=== PATIENT | female | born 1960 | race African-American/Black ===

== ENCOUNTER 2018-05-15 16:21 | Emergency (ER) | payer OTHER ==
[2018-05-15 16:28] VITALS: Ht 157.5 cm
[2018-05-15 18:25] VITALS: BP 153/101
== END 2018-05-15 18:25 | disposition home or self-care (01) ==
LOC: ED 16:21
DX: H10.9 Unspecified conjunctivitis (principal); I10 Essential (primary) hypertension

== ENCOUNTER 2020-08-20 10:53 | Inpatient (IN) | payer OTHER, SELFPAY ==
[~2020-08-20] VITALS: Ht 157.5 cm; Wt 71.2 kg
[2020-08-20 12:41] LABS: BASOPHIL % 0.1 % (0.2-1.3)
[2020-08-20 12:45] LABS: PLATELET COUNT 212 x10^3mcL (179-408); RED CELL DISTRIBUTION WIDTH 13.9 % (12.3-17.7)
[2020-08-20 13:07] LABS: FREE T4 1.38 ng/dL (0.76-1.46); FREE THYROXINE INDEX 2.9 ug/dL (1.4-4.5); T4(THYROXINE) 8.9 ug/dL (4.7-13.3)
[2020-08-20 13:08] LABS: ALKALINE PHOSPHATASE 78 U/L (46-116); AST/SGOT 300 U/L (15-37); CALCIUM 8.4 mg/dL (8.5-10.1); CARBON DIOXIDE 22.2 mmol/L (21-32); CHLORIDE SERUM 89 mmol/L (98-107); CREATININE SERUM 1.8 mg/dL (0.6-1.0); GFR1 31 mL/min; GLUCOSE SERUM 148 mg/dL (74-106); POTASSIUM SERUM 3.2 mmol/L (3.5-5.1); SODIUM SERUM 129 mmol/L (136-145); TOTAL PROTEIN, SERUM 7.2 g/dL (6.4-8.2)
[2020-08-20 13:10] LABS: CK-MB 9.4 ng/mL (0-3.6)
[2020-08-20 13:15] LABS: UA SPECIFIC GRAVITY >=1.030 (1.005-1.035); microscopic required? YES; urine erythrocyte NEGATIVE (NEGATIVE)
[2020-08-20 13:20] LABS: T3 TOTAL 0.37 ng/mL
[2020-08-20 13:28] LABS: ALT/SGPT 178 U/L (14-59)
[2020-08-20 13:53] LABS: C REACTIVE PROTEIN 30.4 mg/dL (<=0.9)
[2020-08-20 14:26] LABS: ERYTHROCYTE SED RATE 85 mm/hr (0-30)
[2020-08-20 17:14] LABS: MAGNESIUM 1.3 mg/dL (1.8-2.4)
[2020-08-20 17:17] LABS: CHOLESTEROL/HDL RATIO 2.3
[2020-08-20 21:16] LABS: AMPHETAMINE QUAL UR NONE DETECTED (See below)
[2020-08-20 23:27] VITALS: BP 114/69
[2020-08-21 04:16] LABS: RED CELL DISTRIBUTION WIDTH 14.2 % (12.3-17.7)
[2020-08-21 04:17] LABS: BASOPHIL % 0.2 % (0.2-1.3); PLATELET COUNT 199 x10^3mcL (179-408)
[2020-08-21 04:32] LABS: CALCIUM 7.7 mg/dL (8.5-10.1); CARBON DIOXIDE 29.1 mmol/L (21-32); CHLORIDE SERUM 99 mmol/L (98-107); GFR1 > 60 mL/min; GLUCOSE SERUM 160 mg/dL (74-106); MAGNESIUM 2.7 mg/dL (1.8-2.4); PHOSPHOROUS 3.7 mg/dL (2.5-4.9); SODIUM SERUM 137 mmol/L (136-145)
[2020-08-21 11:03] LABS: BILIRUBIN DIRECT 0.39 mg/dL (0.0-0.2); BILIRUBIN TOTAL 0.7 mg/dL (0.20-1.00); TOTAL PROTEIN, SERUM 6.5 g/dL (6.4-8.2)
[2020-08-21 11:05] LABS: ALBUMIN 2.9 g/dL (3.4-5.0)
[2020-08-22 03:19] LABS: RED CELL DISTRIBUTION WIDTH 14.5 % (12.3-17.7)
[2020-08-22 03:20] LABS: PLATELET COUNT 185 x10^3mcL (179-408)
[2020-08-22 03:57] LABS: MONOCYTE 8 % (0-7); SEGMENTED NEUTROPHILS 86 % (37-75); rbc morphology (normal/abnorm) NORMAL (NORMAL)
[2020-08-22 04:19] LABS: CALCIUM 8.2 mg/dL (8.5-10.1); CARBON DIOXIDE 33.8 mmol/L (21-32); CHLORIDE SERUM 103 mmol/L (98-107); CREATININE SERUM 0.9 mg/dL (0.6-1.0); GFR1 > 60 mL/min; GLUCOSE SERUM 166 mg/dL (74-106); MAGNESIUM 2.7 mg/dL (1.8-2.4); POTASSIUM SERUM 4.5 mmol/L (3.5-5.1); SODIUM SERUM 139 mmol/L (136-145)
[2020-08-22 20:45] VITALS: BP 97/60
[2020-08-22 22:25] VITALS: BP 108/68
[2020-08-23] VITALS (7 sets, daily range): BP systolic 102–163; BP diastolic 57–75
[2020-08-23 08:51] LABS: PLATELET COUNT 195 x10^3mcL (179-408); RED CELL DISTRIBUTION WIDTH 14.4 % (12.3-17.7)
[2020-08-23 09:28] LABS: CALCIUM 7.9 mg/dL (8.5-10.1); CARBON DIOXIDE 33.2 mmol/L (21-32); CREATININE SERUM 1.3 mg/dL (0.6-1.0); MAGNESIUM 2.7 mg/dL (1.8-2.4); PHOSPHOROUS 1.1 mg/dL (2.5-4.9); POTASSIUM SERUM 3.8 mmol/L (3.5-5.1)
[2020-08-23 10:26] LABS: BILIRUBIN DIRECT 0.31 mg/dL (0.0-0.2); BILIRUBIN TOTAL 0.5 mg/dL (0.20-1.00)
[2020-08-23 10:42] LABS: ALBUMIN 2.3 g/dL (3.4-5.0); TOTAL PROTEIN, SERUM 5.4 g/dL (6.4-8.2)
[2020-08-23 16:22] LABS: BAND NEUTROPHIL 6 % (0-10); BASOPHIL 0 % (0-2); MONOCYTE 3 % (0-7); SEGMENTED NEUTROPHILS 78 % (37-75)
[2020-08-23 16:23] LABS: rbc morphology (normal/abnorm) NORMAL (NORMAL)
[2020-08-23 16:24] LABS: PLATELET MORPHOLOGY PLATELETS NORMAL
[2020-08-24 02:32] VITALS: BP 130/60
[2020-08-24 05:17] LABS: RED CELL DISTRIBUTION WIDTH 14.5 % (12.3-17.7)
[2020-08-24 05:21] LABS: BASOPHIL % 0.2 % (0.2-1.3); PLATELET COUNT 222 x10^3mcL (179-408)
[2020-08-24 05:43] LABS: BILIRUBIN TOTAL 0.6 mg/dL (0.20-1.00); CALCIUM 8.4 mg/dL (8.5-10.1); CARBON DIOXIDE 35.2 mmol/L (21-32); CREATININE SERUM 1.1 mg/dL (0.6-1.0); MAGNESIUM 2.7 mg/dL (1.8-2.4); PHOSPHOROUS 1.8 mg/dL (2.5-4.9); POTASSIUM SERUM 3.9 mmol/L (3.5-5.1); TOTAL PROTEIN, SERUM 6.2 g/dL (6.4-8.2)
[2020-08-24 05:47] LABS: ALBUMIN 2.4 g/dL (3.4-5.0)
[2020-08-24 08:34] VITALS: BP 120/57
[2020-08-24 11:15] VITALS: BP 131/62
[2020-08-24 13:46] VITALS: BP 133/67
[2020-08-24 20:38] VITALS: BP 145/78
[2020-08-25 01:50] VITALS: BP 132/69
[2020-08-25 06:00] LABS: ALKALINE PHOSPHATASE 107 U/L (46-116); ALT/SGPT 111 U/L (14-59); AST/SGOT 41 U/L (15-37); BILIRUBIN TOTAL 0.45 mg/dL (0.20-1.00); CALCIUM 8.2 mg/dL (8.5-10.1); CARBON DIOXIDE 36.1 mmol/L (21-32); CHLORIDE SERUM 111 mmol/L (98-107); CREATININE SERUM 0.7 mg/dL (0.6-1.0); GFR1 > 60 mL/min; GLUCOSE SERUM 93 mg/dL (74-106); MAGNESIUM 2.5 mg/dL (1.8-2.4); PHOSPHOROUS 2.4 mg/dL (2.5-4.9); POTASSIUM SERUM 3.2 mmol/L (3.5-5.1); SODIUM SERUM 152 mmol/L (136-145)
[2020-08-25 06:03] LABS: ALBUMIN 2.2 g/dL (3.4-5.0); TOTAL PROTEIN, SERUM 5.9 g/dL (6.4-8.2)
[2020-08-25 07:20] VITALS: BP 136/59
[2020-08-25 08:48] LABS: PLATELET COUNT 235 x10^3mcL (179-408)
[2020-08-25 09:00] LABS: RED CELL DISTRIBUTION WIDTH 14.6 % (12.3-17.7)
[2020-08-25] MEDS ORDERED: BENZONATATE200 MG PO (10:09)
[2020-08-25] MEDS ORDERED: PROAIR HFA8.5 GM INH ×2 (10:09→10:16)
[2020-08-25] MEDS ORDERED: ZITHROMAX Z-PA250 MG (10:11)
[2020-08-25] MEDS ORDERED: PRED MILD5 ML OS (10:12)
[2020-08-25] MEDS ORDERED: NAPROXEN375 MG PO (10:12)
[2020-08-25] MEDS ORDERED: DORZOLAMIDE HYD10 M3 OU (10:13)
[2020-08-25] MEDS ORDERED: SINGULAIR10 MG PO (10:13)
[2020-08-25] MEDS ORDERED: BRIMONIDINE TART5 M1 OU (10:14)
[2020-08-25] MEDS ORDERED: VYZULTA5 ML OU (10:14)
[2020-08-25] MEDS ORDERED: BREO ELLIPTA1 PO1 INH (10:15)
[2020-08-25] MEDS ORDERED: RHOPRESSA2.5 ML OS (10:16)
[2020-08-25] MEDS ORDERED: REFRESH TEARS15 ML OU (10:16)
[2020-08-25] MEDS ORDERED: ATRUD INH (10:18)
[2020-08-25] MEDS ORDERED: SYMBICORT1 AE3 INH (10:19)
[2020-08-25 13:16] LABS: BAND NEUTROPHIL 2 % (0-10); BASOPHIL 0 % (0-2); MONOCYTE 3 % (0-7); PLATELET MORPHOLOGY PLATELETS NORMAL; SEGMENTED NEUTROPHILS 82 % (37-75); rbc morphology (normal/abnorm) NORMAL (NORMAL)
[2020-08-25 14:06] LABS: CALCIUM 8.2 mg/dL (8.5-10.1); CARBON DIOXIDE 33.7 mmol/L (21-32); CHLORIDE SERUM 109 mmol/L (98-107); CREATININE SERUM 0.6 mg/dL (0.6-1.0); GFR1 > 60 mL/min; GLUCOSE SERUM 170 mg/dL (74-106); POTASSIUM SERUM 3.7 mmol/L (3.5-5.1); SODIUM SERUM 148 mmol/L (136-145)
[2020-08-25 19:11] LABS: CALCIUM 7.7 mg/dL (8.5-10.1); CARBON DIOXIDE 34.6 mmol/L (21-32); CHLORIDE SERUM 109 mmol/L (98-107); CREATININE SERUM 0.7 mg/dL (0.6-1.0); GFR1 > 60 mL/min; GLUCOSE SERUM 160 mg/dL (74-106); POTASSIUM SERUM 3.4 mmol/L (3.5-5.1); SODIUM SERUM 149 mmol/L (136-145)
[2020-08-25 20:15] VITALS: BP 133/62
[2020-08-26 02:00] VITALS: BP 135/78
[2020-08-26 06:35] LABS: BASOPHIL % 0.2 % (0.2-1.3); PLATELET COUNT 252 x10^3mcL (179-408); RED CELL DISTRIBUTION WIDTH 14.5 % (12.3-17.7)
[2020-08-26 07:09] LABS: CALCIUM 8.5 mg/dL (8.5-10.1); CHLORIDE SERUM 110 mmol/L (98-107); CREATININE SERUM 0.8 mg/dL (0.6-1.0); GFR1 > 60 mL/min; GLUCOSE SERUM 107 mg/dL (74-106); MAGNESIUM 2.5 mg/dL (1.8-2.4); POTASSIUM SERUM 3.1 mmol/L (3.5-5.1); SODIUM SERUM 152 mmol/L (136-145)
[2020-08-26 07:17] LABS: ALBUMIN 1.9 g/dL (3.4-5.0)
[2020-08-26 07:29] LABS: ALKALINE PHOSPHATASE 85 U/L (46-116); ALT/SGPT 112 U/L (14-59); AST/SGOT 70 U/L (15-37); BILIRUBIN TOTAL 0.48 mg/dL (0.20-1.00); PHOSPHOROUS 3.4 mg/dL (2.5-4.9)
[2020-08-26 07:30] LABS: TOTAL PROTEIN, SERUM 5.9 g/dL (6.4-8.2)
[2020-08-26 13:10] LABS: CARBON DIOXIDE 37.5 mmol/L (21-32); CHLORIDE SERUM 110 mmol/L (98-107); CREATININE SERUM 0.8 mg/dL (0.6-1.0); GFR1 > 60 mL/min; GLUCOSE SERUM 175 mg/dL (74-106); POTASSIUM SERUM 3.4 mmol/L (3.5-5.1); SODIUM SERUM 152 mmol/L (136-145)
[2020-08-26 22:41] LABS: CARBON DIOXIDE 32.7 mmol/L (21-32); CHLORIDE SERUM 116 mmol/L (98-107); CREATININE SERUM 0.7 mg/dL (0.6-1.0); GFR1 > 60 mL/min; GLUCOSE SERUM 137 mg/dL (74-106); POTASSIUM SERUM 4.3 mmol/L (3.5-5.1); SODIUM SERUM 155 mmol/L (136-145)
[2020-08-26 22:55] LABS: rbc morphology (normal/abnorm) ABNORMAL (NORMAL); tear drop cell (dacryocyte) 1+
[2020-08-27 00:46] LABS: CALCIUM 7.5 mg/dL (8.5-10.1); CARBON DIOXIDE 33.9 mmol/L (21-32); CHLORIDE SERUM 119 mmol/L (98-107); CREATININE SERUM 0.7 mg/dL (0.6-1.0); GFR1 > 60 mL/min; GLUCOSE SERUM 129 mg/dL (74-106); POTASSIUM SERUM 4.4 mmol/L (3.5-5.1); SODIUM SERUM 158 mmol/L (136-145)
[2020-08-27 07:03] LABS: CALCIUM 7.8 mg/dL (8.5-10.1); CARBON DIOXIDE 33.1 mmol/L (21-32); CHLORIDE SERUM 119 mmol/L (98-107); GFR1 > 60 mL/min; GLUCOSE SERUM 196 mg/dL (74-106); POTASSIUM SERUM 3.8 mmol/L (3.5-5.1); SODIUM SERUM 157 mmol/L (136-145)
[2020-08-27 08:38] VITALS: BP 96/52
[2020-08-27 10:00] VITALS: BP 96/46
[2020-08-27 10:13] VITALS: BP 70/35
[2020-08-27 12:00] VITALS: BP 96/46
[2020-08-27 13:14] LABS: CALCIUM 7.8 mg/dL (8.5-10.1); CARBON DIOXIDE 27.2 mmol/L (21-32); CREATININE SERUM 1.7 mg/dL (0.6-1.0); POTASSIUM SERUM 4.6 mmol/L (3.5-5.1)
[2020-08-27 16:00] VITALS: BP 115/60
[2020-08-27 19:08] LABS: CALCIUM 6.7 mg/dL (8.5-10.1); CARBON DIOXIDE 30.4 mmol/L (21-32); CREATININE SERUM 1.7 mg/dL (0.6-1.0); POTASSIUM SERUM 4.9 mmol/L (3.5-5.1)
[2020-08-27 20:00] VITALS: BP 132/93
[2020-08-28 00:05] VITALS: BP 100/77
[2020-08-28 06:56] LABS: PLATELET COUNT 118 x10^3mcL (179-408); RED CELL DISTRIBUTION WIDTH 14.6 % (12.3-17.7)
[2020-08-28 06:58] LABS: CALCIUM 6.4 mg/dL (8.5-10.1); CARBON DIOXIDE 28.3 mmol/L (21-32); CREATININE SERUM 1.5 mg/dL (0.6-1.0); MAGNESIUM 1.8 mg/dL (1.8-2.4); PHOSPHOROUS 3.9 mg/dL (2.5-4.9)
[2020-08-28 08:00] VITALS: BP 97/68
[2020-08-28 09:42] LABS: BILIRUBIN DIRECT 0.14 mg/dL (0.0-0.2); BILIRUBIN TOTAL 0.3 mg/dL (0.20-1.00)
[2020-08-28 09:43] LABS: ALBUMIN 1.4 g/dL (3.4-5.0); TOTAL PROTEIN, SERUM 3.4 g/dL (6.4-8.2)
[2020-08-28 12:00] VITALS: BP 132/111
[2020-08-28 13:57] LABS: BAND NEUTROPHIL 0 % (0-10); BASOPHIL 0 % (0-2); MONOCYTE 5 % (0-7); PLATELET MORPHOLOGY PLATELETS DECREASED; SEGMENTED NEUTROPHILS 85 % (37-75); rbc morphology (normal/abnorm) ABNORMAL (NORMAL)
[2020-08-28 16:00] VITALS: BP 94/51
[2020-08-28 19:47] LABS: PLATELET COUNT 131 x10^3mcL (179-408)
[2020-08-28 20:03] LABS: RED CELL DISTRIBUTION WIDTH 16.2 % (12.3-17.7)
[2020-08-28 20:30] VITALS: BP 103/68
[2020-08-28 20:49] LABS: BAND NEUTROPHIL 3 % (0-10); METAMYELOCTE 6 % (0-2); MONOCYTE 8 % (0-7); MYELOCYTE 1 % (0-2); SEGMENTED NEUTROPHILS 73 % (37-75)
[2020-08-28 20:51] LABS: rbc morphology (normal/abnorm) ABNORMAL (NORMAL)
[2020-08-28 20:54] LABS: PLATELET MORPHOLOGY PLATELET S DECREASED
[2020-08-29 08:00] VITALS: BP 97/63
[2020-08-29 10:54] LABS: CARBON DIOXIDE 31.9 mmol/L (21-32); CREATININE SERUM 1.8 mg/dL (0.6-1.0); MAGNESIUM 1.9 mg/dL (1.8-2.4); PHOSPHOROUS 5.1 mg/dL (2.5-4.9); POTASSIUM SERUM 4.4 mmol/L (3.5-5.1)
[2020-08-29 12:00] VITALS: BP 107/47
[2020-08-29 13:08] LABS: PLATELET COUNT 138 x10^3mcL (179-408)
[2020-08-29 13:24] LABS: RED CELL DISTRIBUTION WIDTH 14.7 % (12.3-17.7)
[2020-08-29 14:02] LABS: BAND NEUTROPHIL 2 % (0-10); MONOCYTE 4 % (0-7); SEGMENTED NEUTROPHILS 82 % (37-75); rbc morphology (normal/abnorm) ABNORMAL (NORMAL)
[2020-08-29 16:00] VITALS: BP 101/47
[2020-08-29 20:30] VITALS: BP 107/62
[2020-08-30 06:18] LABS: BASOPHIL % 0.4 % (0.2-1.3)
[2020-08-30 06:21] LABS: PLATELET COUNT 139 x10^3mcL (179-408)
[2020-08-30 06:38] LABS: CREATININE SERUM 1.3 mg/dL (0.6-1.0); POTASSIUM SERUM 3.8 mmol/L (3.5-5.1)
[2020-08-30 06:44] LABS: RED CELL DISTRIBUTION WIDTH 14.7 % (12.3-17.7)
[2020-08-30 08:00] VITALS: BP 132/92
[2020-08-30 12:00] VITALS: BP 132/72
[2020-08-30 12:30] LABS: rbc morphology (normal/abnorm) NORMAL (NORMAL)
[2020-08-30 15:04] LABS: PLATELET COUNT 145 x10^3mcL (179-408)
[2020-08-30 15:11] LABS: RED CELL DISTRIBUTION WIDTH 14.7 % (12.3-17.7)
[2020-08-30 16:00] VITALS: BP 117/65
[2020-08-30 16:01] LABS: ATYPICAL LYMPH 1 %; BAND NEUTROPHIL 2 % (0-10); METAMYELOCTE 9 % (0-2); MONOCYTE 4 % (0-7); MYELOCYTE 3 % (0-2); SEGMENTED NEUTROPHILS 77 % (37-75); rbc morphology (normal/abnorm) ABNORMAL (NORMAL)
[2020-08-30 16:02] LABS: PLATELET MORPHOLOGY PLATELETS NORMAL
[2020-08-30 20:30] VITALS: BP 92/53
[2020-08-31] VITALS (7 sets, daily range): BP systolic 132–174; BP diastolic 60–96
[2020-08-31 09:37] LABS: BASOPHIL % 0.2 % (0.2-1.3); PLATELET COUNT 139 x10^3mcL (179-408)
[2020-08-31 09:55] LABS: RED CELL DISTRIBUTION WIDTH 14.6 % (12.3-17.7)
[2020-08-31 09:56] LABS: BILIRUBIN TOTAL 0.6 mg/dL (0.20-1.00); CARBON DIOXIDE 33.2 mmol/L (21-32); CREATININE SERUM 1.2 mg/dL (0.6-1.0); PHOSPHOROUS 2.4 mg/dL (2.5-4.9)
[2020-08-31 10:11] LABS: ALBUMIN 3.3 g/dL (3.4-5.0); TOTAL PROTEIN, SERUM 5.7 g/dL (6.4-8.2)
[2020-08-31 10:14] LABS: POTASSIUM SERUM 2.9 mmol/L (3.5-5.1)
[2020-08-31 20:11] LABS: CALCIUM 9.1 mg/dL (8.5-10.1); CARBON DIOXIDE 32.3 mmol/L (21-32); CREATININE SERUM 1.3 mg/dL (0.6-1.0); POTASSIUM SERUM 3.5 mmol/L (3.5-5.1)
[2020-09-01 07:11] LABS: ALBUMIN 3.3 g/dL (3.4-5.0); ALKALINE PHOSPHATASE 40 U/L (46-116); ALT/SGPT 341 U/L (14-59); AST/SGOT 105 U/L (15-37); CALCIUM 9.1 mg/dL (8.5-10.1); CHLORIDE SERUM 116 mmol/L (98-107); GFR1 > 60 mL/min; GLUCOSE SERUM 116 mg/dL (74-106); MAGNESIUM 2.2 mg/dL (1.8-2.4); PHOSPHOROUS 2.3 mg/dL (2.5-4.9); POTASSIUM SERUM 3.3 mmol/L (3.5-5.1); SODIUM SERUM 156 mmol/L (136-145)
[2020-09-01 08:00] VITALS: BP 184/79
[2020-09-01 09:20] LABS: BASOPHIL % 0.2 % (0.2-1.3); PLATELET COUNT 158 x10^3mcL (179-408)
[2020-09-01 10:00] VITALS: BP 166/79
[2020-09-01 12:00] VITALS: BP 138/78
[2020-09-01 14:00] VITALS: BP 154/85
[2020-09-01 16:00] VITALS: BP 154/87
[2020-09-01 20:00] VITALS: BP 153/75
[2020-09-02] VITALS (18 sets, daily range): BP systolic 99–186; BP diastolic 35–107
[2020-09-02 07:11] LABS: BASOPHIL % 0.3 % (0.2-1.3); PLATELET COUNT 163 x10^3mcL (179-408)
[2020-09-02 07:13] LABS: ALKALINE PHOSPHATASE 43 U/L (46-116); ALT/SGPT 267 U/L (14-59); AST/SGOT 52 U/L (15-37); BILIRUBIN TOTAL 0.31 mg/dL (0.20-1.00); CALCIUM 9.2 mg/dL (8.5-10.1); CARBON DIOXIDE 35.7 mmol/L (21-32); CHLORIDE SERUM 114 mmol/L (98-107); CREATININE SERUM 0.9 mg/dL (0.6-1.0); GFR1 > 60 mL/min; GLUCOSE SERUM 274 mg/dL (74-106); SODIUM SERUM 152 mmol/L (136-145)
[2020-09-02 07:20] LABS: ALBUMIN 2.9 g/dL (3.4-5.0); TOTAL PROTEIN, SERUM 5.8 g/dL (6.4-8.2)
[2020-09-02 07:36] LABS: RED CELL DISTRIBUTION WIDTH 15.2 % (12.3-17.7)
[2020-09-03] VITALS (13 sets, daily range): BP systolic 93–144; BP diastolic 61–78
[2020-09-03 06:13] LABS: BASOPHIL % 0.3 % (0.2-1.3); PLATELET COUNT 143 x10^3mcL (179-408)
[2020-09-03 06:25] LABS: CALCIUM 9.5 mg/dL (8.5-10.1); CARBON DIOXIDE 32.8 mmol/L (21-32); CHLORIDE SERUM 110 mmol/L (98-107); GFR1 > 60 mL/min; GLUCOSE SERUM 295 mg/dL (74-106); MAGNESIUM 1.9 mg/dL (1.8-2.4); PHOSPHOROUS 2.2 mg/dL (2.5-4.9); SODIUM SERUM 148 mmol/L (136-145)
[2020-09-03 07:01] LABS: POTASSIUM SERUM 2.5 mmol/L (3.5-5.1)
[2020-09-03 16:40] LABS: CALCIUM 9.3 mg/dL (8.5-10.1); CARBON DIOXIDE 31.3 mmol/L (21-32); CHLORIDE SERUM 108 mmol/L (98-107); CREATININE SERUM 0.9 mg/dL (0.6-1.0); GFR1 > 60 mL/min; GLUCOSE SERUM 336 mg/dL (74-106); POTASSIUM SERUM 3.4 mmol/L (3.5-5.1); SODIUM SERUM 145 mmol/L (136-145)
[2020-09-04] VITALS (20 sets, daily range): BP systolic 57–147; BP diastolic 36–88
[2020-09-04 06:54] LABS: BASOPHIL % 0.8 % (0.2-1.3); PLATELET COUNT 159 x10^3mcL (179-408)
[2020-09-04 07:06] LABS: ALKALINE PHOSPHATASE 49 U/L (46-116); ALT/SGPT 127 U/L (14-59); AST/SGOT 20 U/L (15-37); BILIRUBIN TOTAL 0.23 mg/dL (0.20-1.00); CARBON DIOXIDE 32.5 mmol/L (21-32); CHLORIDE SERUM 109 mmol/L (98-107); GFR1 > 60 mL/min; GLUCOSE SERUM 143 mg/dL (74-106); POTASSIUM SERUM 3.6 mmol/L (3.5-5.1); SODIUM SERUM 146 mmol/L (136-145)
[2020-09-04 07:07] LABS: ALBUMIN 2.2 g/dL (3.4-5.0); TOTAL PROTEIN, SERUM 5.2 g/dL (6.4-8.2)
[2020-09-04 10:16] LABS: rbc morphology (normal/abnorm) ABNORMAL (NORMAL)
[2020-09-05] VITALS (10 sets, daily range): BP systolic 88–129; BP diastolic 51–66
[2020-09-05 06:15] LABS: PLATELET COUNT 161 x10^3mcL (179-408)
[2020-09-05 06:24] LABS: ALKALINE PHOSPHATASE 49 U/L (46-116); ALT/SGPT 99 U/L (14-59); AST/SGOT 39 U/L (15-37); BILIRUBIN TOTAL 0.25 mg/dL (0.20-1.00); CALCIUM 8.3 mg/dL (8.5-10.1); CARBON DIOXIDE 31.5 mmol/L (21-32); CHLORIDE SERUM 112 mmol/L (98-107); GFR1 > 60 mL/min; GLUCOSE SERUM 145 mg/dL (74-106); POTASSIUM SERUM 4.2 mmol/L (3.5-5.1); SODIUM SERUM 145 mmol/L (136-145)
[2020-09-05 06:58] LABS: RED CELL DISTRIBUTION WIDTH 15.7 % (12.3-17.7)
[2020-09-05 06:59] LABS: ALBUMIN 1.9 g/dL (3.4-5.0); TOTAL PROTEIN, SERUM 4.9 g/dL (6.4-8.2)
[2020-09-05 07:22] LABS: SEGMENTED NEUTROPHILS 84 % (37-75)
[2020-09-05 07:23] LABS: BASOPHIL 1 % (0-2); MONOCYTE 5 % (0-7)
[2020-09-05 07:24] LABS: rbc morphology (normal/abnorm) NORMAL (NORMAL)
[2020-09-06] VITALS (9 sets, daily range): BP systolic 91–121; BP diastolic 45–58
[2020-09-06 06:29] LABS: BASOPHIL % 1.2 % (0.2-1.3); PLATELET COUNT 150 x10^3mcL (179-408)
[2020-09-06 06:43] LABS: CALCIUM 8.3 mg/dL (8.5-10.1); CARBON DIOXIDE 32.8 mmol/L (21-32); CHLORIDE SERUM 110 mmol/L (98-107); GFR1 > 60 mL/min; GLUCOSE SERUM 135 mg/dL (74-106); MAGNESIUM 1.7 mg/dL (1.8-2.4); PHOSPHOROUS 3.3 mg/dL (2.5-4.9); SODIUM SERUM 144 mmol/L (136-145)
[2020-09-06 08:39] LABS: RED CELL DISTRIBUTION WIDTH 16.3 % (12.3-17.7)
[2020-09-07] VITALS (12 sets, daily range): BP systolic 100–158; BP diastolic 46–92
[2020-09-07 06:45] LABS: BASOPHIL % 0.3 % (0.2-1.3); PLATELET COUNT 142 x10^3mcL (179-408)
[2020-09-07 07:04] LABS: CALCIUM 8.4 mg/dL (8.5-10.1); CARBON DIOXIDE 31.8 mmol/L (21-32); CHLORIDE SERUM 110 mmol/L (98-107); CREATININE SERUM 0.9 mg/dL (0.6-1.0); GFR1 > 60 mL/min; GLUCOSE SERUM 137 mg/dL (74-106); POTASSIUM SERUM 4.8 mmol/L (3.5-5.1); SODIUM SERUM 144 mmol/L (136-145)
[2020-09-07 07:25] LABS: RED CELL DISTRIBUTION WIDTH 17.4 % (12.3-17.7)
[2020-09-08] VITALS (20 sets, daily range): BP systolic 98–133; BP diastolic 51–69
[2020-09-08 06:25] LABS: BASOPHIL % 0.4 % (0.2-1.3); PLATELET COUNT 180 x10^3mcL (179-408)
[2020-09-08 07:02] LABS: ALKALINE PHOSPHATASE 54 U/L (46-116); ALT/SGPT 62 U/L (14-59); AST/SGOT 28 U/L (15-37); BILIRUBIN DIRECT 0.12 mg/dL (0.0-0.2); BILIRUBIN TOTAL 0.3 mg/dL (0.20-1.00); CALCIUM 8.1 mg/dL (8.5-10.1); CARBON DIOXIDE 36.4 mmol/L (21-32); CHLORIDE SERUM 107 mmol/L (98-107); CREATININE SERUM 0.9 mg/dL (0.6-1.0); GFR1 > 60 mL/min; GLUCOSE SERUM 115 mg/dL (74-106); MAGNESIUM 1.7 mg/dL (1.8-2.4); PHOSPHOROUS 3.5 mg/dL (2.5-4.9); POTASSIUM SERUM 3.3 mmol/L (3.5-5.1); SODIUM SERUM 144 mmol/L (136-145)
[2020-09-08 07:05] LABS: ALBUMIN 2.2 g/dL (3.4-5.0); TOTAL PROTEIN, SERUM 5.6 g/dL (6.4-8.2)
[2020-09-08 07:24] LABS: RED CELL DISTRIBUTION WIDTH 17.8 % (12.3-17.7)
[2020-09-09] VITALS (20 sets, daily range): BP systolic 102–177; BP diastolic 51–94
[2020-09-09 08:25] LABS: BASOPHIL % 0.7 % (0.2-1.3); PLATELET COUNT 236 x10^3mcL (179-408)
[2020-09-09 08:46] LABS: RED CELL DISTRIBUTION WIDTH 19.2 % (12.3-17.7)
[2020-09-09 08:51] LABS: ALKALINE PHOSPHATASE 61 U/L (46-116); ALT/SGPT 50 U/L (14-59); AST/SGOT 24 U/L (15-37); BILIRUBIN TOTAL 0.3 mg/dL (0.20-1.00); CALCIUM 8.1 mg/dL (8.5-10.1); CARBON DIOXIDE 35.2 mmol/L (21-32); CHLORIDE SERUM 104 mmol/L (98-107); CREATININE SERUM 0.9 mg/dL (0.6-1.0); GFR1 > 60 mL/min; GLUCOSE SERUM 122 mg/dL (74-106); SODIUM SERUM 146 mmol/L (136-145)
[2020-09-09 08:56] LABS: ALBUMIN 2.1 g/dL (3.4-5.0); POTASSIUM SERUM 2.8 mmol/L (3.5-5.1); TOTAL PROTEIN, SERUM 5.9 g/dL (6.4-8.2)
[2020-09-09 12:39] LABS: rbc morphology (normal/abnorm) ABNORMAL (NORMAL)
[2020-09-10] VITALS (9 sets, daily range): BP systolic 107–160; BP diastolic 56–82
[2020-09-10 00:42] LABS: BASOPHIL % 0.5 % (0.2-1.3); PLATELET COUNT 219 x10^3mcL (179-408)
[2020-09-10 00:44] LABS: RED CELL DISTRIBUTION WIDTH 17.5 % (12.3-17.7)
[2020-09-10 07:08] LABS: ALKALINE PHOSPHATASE 52 U/L (46-116); ALT/SGPT 49 U/L (14-59); AST/SGOT 38 U/L (15-37); BASOPHIL % 0.4 % (0.2-1.3); BILIRUBIN DIRECT 0.17 mg/dL (0.0-0.2); BILIRUBIN TOTAL 0.32 mg/dL (0.20-1.00); CALCIUM 8.5 mg/dL (8.5-10.1); CARBON DIOXIDE 37.7 mmol/L (21-32); CHLORIDE SERUM 103 mmol/L (98-107); CREATININE SERUM 0.9 mg/dL (0.6-1.0); GFR1 > 60 mL/min; GLUCOSE SERUM 125 mg/dL (74-106); PLATELET COUNT 215 x10^3mcL (179-408); SODIUM SERUM 144 mmol/L (136-145)
[2020-09-10 07:22] LABS: ALBUMIN 2.1 g/dL (3.4-5.0); POTASSIUM SERUM 2.8 mmol/L (3.5-5.1); TOTAL PROTEIN, SERUM 5.9 g/dL (6.4-8.2)
[2020-09-10 07:28] LABS: RED CELL DISTRIBUTION WIDTH 18.6 % (12.3-17.7)
[2020-09-10 12:29] LABS: rbc morphology (normal/abnorm) ABNORMAL (NORMAL)
[2020-09-11] VITALS: BP 149/81
[2020-09-11 04:00] VITALS: BP 118/58
[2020-09-11 05:56] LABS: BASOPHIL % 0.1 % (0.2-1.3); PLATELET COUNT 276 x10^3mcL (179-408)
[2020-09-11 06:11] LABS: ALKALINE PHOSPHATASE 58 U/L (46-116); ALT/SGPT 75 U/L (14-59); AST/SGOT 62 U/L (15-37); BILIRUBIN DIRECT 0.17 mg/dL (0.0-0.2); BILIRUBIN TOTAL 0.3 mg/dL (0.20-1.00); CALCIUM 8.6 mg/dL (8.5-10.1); CHLORIDE SERUM 103 mmol/L (98-107); CREATININE SERUM 0.8 mg/dL (0.6-1.0); GFR1 > 60 mL/min; GLUCOSE SERUM 111 mg/dL (74-106); POTASSIUM SERUM 3.5 mmol/L (3.5-5.1); SODIUM SERUM 143 mmol/L (136-145); TOTAL PROTEIN, SERUM 6.7 g/dL (6.4-8.2)
[2020-09-11 06:19] LABS: ALBUMIN 2.5 g/dL (3.4-5.0)
[2020-09-11 08:00] VITALS: BP 128/84
[2020-09-12 04:00] VITALS: BP 149/62
[2020-09-12 05:56] LABS: BASOPHIL % 0.4 % (0.2-1.3); PLATELET COUNT 312 x10^3mcL (179-408)
[2020-09-12 05:58] LABS: RED CELL DISTRIBUTION WIDTH 17.7 % (12.3-17.7)
[2020-09-12 06:14] LABS: ALKALINE PHOSPHATASE 58 U/L (46-116); ALT/SGPT 68 U/L (14-59); AST/SGOT 45 U/L (15-37); BILIRUBIN TOTAL 0.3 mg/dL (0.20-1.00); CALCIUM 9.3 mg/dL (8.5-10.1); CARBON DIOXIDE 37.8 mmol/L (21-32); CHLORIDE SERUM 104 mmol/L (98-107); CREATININE SERUM 0.8 mg/dL (0.6-1.0); GFR1 > 60 mL/min; GLUCOSE SERUM 167 mg/dL (74-106); SODIUM SERUM 145 mmol/L (136-145); TOTAL PROTEIN, SERUM 6.8 g/dL (6.4-8.2)
[2020-09-12 06:18] LABS: ALBUMIN 2.5 g/dL (3.4-5.0)
[2020-09-12 06:19] LABS: POTASSIUM SERUM 2.6 mmol/L (3.5-5.1)
[2020-09-12 08:00] VITALS: BP 155/84
[2020-09-12 12:00] VITALS: BP 109/49
[2020-09-12 16:00] VITALS: BP 155/90
[2020-09-12 19:55] VITALS: BP 151/72
[2020-09-12 23:19] VITALS: BP 148/85
[2020-09-13 04:01] VITALS: BP 153/84
[2020-09-13 05:34] LABS: BASOPHIL % 0.7 % (0.2-1.3); PLATELET COUNT 299 x10^3mcL (179-408)
[2020-09-13 05:54] LABS: RED CELL DISTRIBUTION WIDTH 18.4 % (12.3-17.7)
[2020-09-13 06:02] LABS: ALKALINE PHOSPHATASE 63 U/L (46-116); ALT/SGPT 55 U/L (14-59); AST/SGOT 25 U/L (15-37); BILIRUBIN TOTAL 0.2 mg/dL (0.20-1.00); CARBON DIOXIDE 39.2 mmol/L (21-32); CHLORIDE SERUM 106 mmol/L (98-107); CREATININE SERUM 0.8 mg/dL (0.6-1.0); GFR1 > 60 mL/min; GLUCOSE SERUM 169 mg/dL (74-106); POTASSIUM SERUM 3.9 mmol/L (3.5-5.1); SODIUM SERUM 145 mmol/L (136-145); TOTAL PROTEIN, SERUM 6.9 g/dL (6.4-8.2)
[2020-09-13 06:05] LABS: ALBUMIN 2.6 g/dL (3.4-5.0)
[2020-09-13 07:00] VITALS: BP 123/65
[2020-09-13 12:00] VITALS: BP 138/80
[2020-09-13 16:00] VITALS: BP 121/85
[2020-09-13 19:55] VITALS: BP 185/66
[2020-09-14 07:05] LABS: ALKALINE PHOSPHATASE 80 U/L (46-116); ALT/SGPT 44 U/L (14-59); AST/SGOT 24 U/L (15-37); BILIRUBIN TOTAL 0.28 mg/dL (0.20-1.00); CALCIUM 10.1 mg/dL (8.5-10.1); CHLORIDE SERUM 104 mmol/L (98-107); GFR1 > 60 mL/min; GLUCOSE SERUM 256 mg/dL (74-106); POTASSIUM SERUM 3.7 mmol/L (3.5-5.1); SODIUM SERUM 145 mmol/L (136-145); TOTAL PROTEIN, SERUM 7.3 g/dL (6.4-8.2)
[2020-09-14 07:10] LABS: ALBUMIN 2.5 g/dL (3.4-5.0)
[2020-09-14 08:00] VITALS: BP 137/80
[2020-09-14 09:17] LABS: BASOPHIL % 0.6 % (0.2-1.3); PLATELET COUNT 248 x10^3mcL (179-408)
[2020-09-14 11:22] LABS: RED CELL DISTRIBUTION WIDTH 18.8 % (12.3-17.7)
[2020-09-14 12:00] VITALS: BP 145/52
[2020-09-14 19:27] VITALS: BP 97/48
[2020-09-14 23:36] VITALS: BP 101/52
[2020-09-15 06:02] VITALS: BP 107/56
[2020-09-15 06:44] LABS: PLATELET COUNT 227 x10^3mcL (179-408)
[2020-09-15 06:49] LABS: RED CELL DISTRIBUTION WIDTH 19.7 % (12.3-17.7)
[2020-09-15 07:34] LABS: CALCIUM 9.9 mg/dL (8.5-10.1); CREATININE SERUM 1.6 mg/dL (0.6-1.0); MAGNESIUM 1.9 mg/dL (1.8-2.4); POTASSIUM SERUM 3.8 mmol/L (3.5-5.1)
[2020-09-15 11:09] LABS: BAND NEUTROPHIL 28 % (0-10); BASOPHIL 0 % (0-2); METAMYELOCTE 1 % (0-2); MONOCYTE 3 % (0-7); MYELOCYTE 1 % (0-2); SEGMENTED NEUTROPHILS 65 % (37-75)
[2020-09-15 11:10] LABS: PLATELET MORPHOLOGY LARGE PLATELET SEEN; rbc morphology (normal/abnorm) ABNORMAL (NORMAL); tear drop cell (dacryocyte) 1+
[2020-09-15 12:00] VITALS: BP 97/47
[2020-09-15 15:13] LABS: UA SPECIFIC GRAVITY 1.015 (1.005-1.035); microscopic required? YES; urine erythrocyte 2+ (NEGATIVE)
[2020-09-15 16:00] VITALS: BP 105/59
[2020-09-16 00:48] VITALS: BP 120/81
[2020-09-16 07:13] LABS: BILIRUBIN TOTAL 0.6 mg/dL (0.20-1.00); CALCIUM 7.8 mg/dL (8.5-10.1); CARBON DIOXIDE 28.4 mmol/L (21-32); CREATININE SERUM 2.8 mg/dL (0.6-1.0)
[2020-09-16 08:00] VITALS: BP 113/66
[2020-09-16 08:20] LABS: PLATELET COUNT 150 x10^3mcL (179-408)
[2020-09-16 08:27] LABS: RED CELL DISTRIBUTION WIDTH 21.3 % (12.3-17.7)
[2020-09-16 08:46] LABS: ALBUMIN 1.5 g/dL (3.4-5.0); TOTAL PROTEIN, SERUM 5.7 g/dL (6.4-8.2)
[2020-09-16 10:27] LABS: BAND NEUTROPHIL 4 % (0-10); MONOCYTE 2 % (0-7); PLATELET MORPHOLOGY PLATELETS NORMAL; SEGMENTED NEUTROPHILS 90 % (37-75); rbc morphology (normal/abnorm) ABNORMAL (NORMAL)
[2020-09-16 12:00] VITALS: BP 111/53
[2020-09-16 12:17] LABS: CALCIUM 8.1 mg/dL (8.5-10.1); CARBON DIOXIDE 29.3 mmol/L (21-32); CREATININE SERUM 2.8 mg/dL (0.6-1.0); POTASSIUM SERUM 3.4 mmol/L (3.5-5.1)
[2020-09-16 16:00] VITALS: BP 108/67
[2020-09-16 20:00] VITALS: BP 116/75
[2020-09-17 00:07] VITALS: BP 126/73
[2020-09-17 04:00] VITALS: BP 92/52
[2020-09-17 05:42] LABS: BASOPHIL % 0.5 % (0.2-1.3)
[2020-09-17 06:03] LABS: PLATELET COUNT 128 x10^3mcL (179-408); RED CELL DISTRIBUTION WIDTH 19.4 % (12.3-17.7)
[2020-09-17 06:13] LABS: BILIRUBIN TOTAL 0.33 mg/dL (0.20-1.00); CARBON DIOXIDE 30.7 mmol/L (21-32); CREATININE SERUM 2.7 mg/dL (0.6-1.0); MAGNESIUM 2.3 mg/dL (1.8-2.4); POTASSIUM SERUM 3.3 mmol/L (3.5-5.1)
[2020-09-17 06:14] LABS: ALBUMIN 1.4 g/dL (3.4-5.0); TOTAL PROTEIN, SERUM 5.9 g/dL (6.4-8.2)
[2020-09-17 08:00] VITALS: BP 90/71
[2020-09-17 13:00] VITALS: BP 123/74
[2020-09-17 15:31] LABS: BASOPHIL % 0.1 % (0.2-1.3); PLATELET COUNT 144 x10^3mcL (179-408)
[2020-09-17 15:35] LABS: RED CELL DISTRIBUTION WIDTH 18.8 % (12.3-17.7)
[2020-09-17 15:46] LABS: CALCIUM 8.3 mg/dL (8.5-10.1); CARBON DIOXIDE 30.3 mmol/L (21-32); CREATININE SERUM 2.5 mg/dL (0.6-1.0); POTASSIUM SERUM 3.2 mmol/L (3.5-5.1)
[2020-09-17 16:30] VITALS: BP 138/54
[2020-09-17 20:00] VITALS: BP 171/91
[2020-09-18] VITALS: BP 131/64
[2020-09-18 04:00] VITALS: BP 129/68
[2020-09-18 08:00] VITALS: BP 115/62; BP 129/71
[2020-09-18 09:07] LABS: BILIRUBIN TOTAL 0.42 mg/dL (0.20-1.00); CALCIUM 8.9 mg/dL (8.5-10.1); CARBON DIOXIDE 27.2 mmol/L (21-32); CREATININE SERUM 2.2 mg/dL (0.6-1.0); POTASSIUM SERUM 3.4 mmol/L (3.5-5.1)
[2020-09-18 09:08] LABS: ALBUMIN 1.4 g/dL (3.4-5.0)
[2020-09-18 09:56] LABS: PLATELET COUNT 118 x10^3mcL (179-408); RED CELL DISTRIBUTION WIDTH 18.5 % (12.3-17.7)
[2020-09-18 10:32] LABS: BAND NEUTROPHIL 6 % (0-10); METAMYELOCTE 2 % (0-2); MONOCYTE 5 % (0-7); SEGMENTED NEUTROPHILS 83 % (37-75)
[2020-09-18 10:33] LABS: MYELOCYTE 2 % (0-2)
[2020-09-18 10:34] LABS: PLATELET MORPHOLOGY LARGE PLATELET SEEN
[2020-09-18 10:50] LABS: rbc morphology (normal/abnorm) ABNORMAL (NORMAL)
[2020-09-18 12:00] VITALS: BP 110/58
[2020-09-18 18:35] VITALS: BP 128/72
[2020-09-18 20:00] VITALS: BP 130/74
[2020-09-19] VITALS: BP 127/85
[2020-09-19 04:00] VITALS: BP 126/69
[2020-09-19 06:21] LABS: PLATELET COUNT 151 x10^3mcL (179-408)
[2020-09-19 06:29] LABS: BILIRUBIN TOTAL 0.6 mg/dL (0.20-1.00); CALCIUM 9.3 mg/dL (8.5-10.1); CARBON DIOXIDE 22.9 mmol/L (21-32); CREATININE SERUM 2.2 mg/dL (0.6-1.0); POTASSIUM SERUM 3.8 mmol/L (3.5-5.1)
[2020-09-19 06:31] LABS: ALBUMIN 1.5 g/dL (3.4-5.0)
[2020-09-19 06:50] LABS: RED CELL DISTRIBUTION WIDTH 18.4 % (12.3-17.7)
[2020-09-19 08:00] VITALS: BP 138/66
[2020-09-19 08:11] LABS: BAND NEUTROPHIL 4 % (0-10); MONOCYTE 3 % (0-7); SEGMENTED NEUTROPHILS 89 % (37-75)
[2020-09-19 08:12] LABS: PLATELET MORPHOLOGY LARGE PLATELET SEEN; rbc morphology (normal/abnorm) ABNORMAL (NORMAL)
[2020-09-19 12:00] VITALS: BP 127/60
[2020-09-19 15:34] VITALS: BP 143/71
[2020-09-19 19:55] VITALS: BP 131/72; BP 137/71
[2020-09-20 00:26] VITALS: BP 139/57
[2020-09-20 04:19] VITALS: BP 163/68
[2020-09-20 07:25] VITALS: BP 143/68
[2020-09-20 08:14] LABS: MAGNESIUM 2.8 mg/dL (1.8-2.4); PHOSPHOROUS 5.1 mg/dL (2.5-4.9)
[2020-09-20 09:27] LABS: BILIRUBIN TOTAL 1.3 mg/dL (0.20-1.00); CARBON DIOXIDE 19.4 mmol/L (21-32); POTASSIUM SERUM 3.8 mmol/L (3.5-5.1)
[2020-09-20 09:32] LABS: ALBUMIN 1.3 g/dL (3.4-5.0); TOTAL PROTEIN, SERUM 5.9 g/dL (6.4-8.2)
[2020-09-20 09:42] LABS: CALCIUM 8.8 mg/dL (8.5-10.1); CREATININE SERUM 2.1 mg/dL (0.6-1.0)
[2020-09-20 12:02] LABS: PLATELET COUNT 224 x10^3mcL (179-408)
[2020-09-20 12:05] VITALS: BP 118/58
[2020-09-20 12:10] LABS: RED CELL DISTRIBUTION WIDTH 18.9 % (12.3-17.7)
[2020-09-20 14:55] LABS: BAND NEUTROPHIL 8 % (0-10); METAMYELOCTE 2 % (0-2); MONOCYTE 2 % (0-7); MYELOCYTE 3 % (0-2); SEGMENTED NEUTROPHILS 80 % (37-75); rbc morphology (normal/abnorm) ABNORMAL (NORMAL)
[2020-09-20 14:56] LABS: PLATELET MORPHOLOGY LARGE PLATELET SEEN
[2020-09-20 16:30] VITALS: BP 127/66
[2020-09-20 20:40] LABS: PLATELET COUNT 210 x10^3mcL (179-408)
[2020-09-20 20:44] LABS: RED CELL DISTRIBUTION WIDTH 19.6 % (12.3-17.7)
[2020-09-20 21:00] LABS: ATYPICAL LYMPH 1 %; BAND NEUTROPHIL 14 % (0-10); BASOPHIL 0 % (0-2); METAMYELOCTE 4 % (0-2); MONOCYTE 1 % (0-7); SEGMENTED NEUTROPHILS 73 % (37-75)
[2020-09-20 21:03] LABS: PLATELET MORPHOLOGY PLATELETS NORMAL; rbc morphology (normal/abnorm) NORMAL (NORMAL)
[2020-09-20 21:15] VITALS: BP 144/46
[2020-09-21] VITALS (15 sets, daily range): BP systolic 96–124; BP diastolic 34–52; Ht 157.5 cm; Wt 71.2 kg
[2020-09-21 18:25] LABS: CALCIUM 8.6 mg/dL (8.5-10.1); CREATININE SERUM 3.5 mg/dL (0.6-1.0); MAGNESIUM 2.7 mg/dL (1.8-2.4); PHOSPHOROUS 5.6 mg/dL (2.5-4.9)
[2020-09-22 04:31] VITALS: BP 123/50
[2020-09-22 06:00] LABS: PLATELET COUNT 243 x10^3mcL (179-408)
[2020-09-22 06:26] LABS: BILIRUBIN TOTAL 3.4 mg/dL (0.20-1.00); CALCIUM 8.5 mg/dL (8.5-10.1); CARBON DIOXIDE 19.7 mmol/L (21-32); POTASSIUM SERUM 4.6 mmol/L (3.5-5.1); RED CELL DISTRIBUTION WIDTH 19.5 % (12.3-17.7)
[2020-09-22 06:27] LABS: ALBUMIN 1.1 g/dL (3.4-5.0); TOTAL PROTEIN, SERUM 5.8 g/dL (6.4-8.2)
[2020-09-22 06:28] LABS: CREATININE SERUM 4.6 mg/dL (0.6-1.0)
[2020-09-22 08:00] VITALS: BP 111/52
[2020-09-22 08:23] LABS: BAND NEUTROPHIL 3 % (0-10); METAMYELOCTE 3 % (0-2); MONOCYTE 2 % (0-7); PLATELET MORPHOLOGY PLATELETS NORMAL; SEGMENTED NEUTROPHILS 90 % (37-75); rbc morphology (normal/abnorm) ABNORMAL (NORMAL)
[2020-09-22 10:06] LABS: PLATELET COUNT 223 x10^3mcL (130-400); RED CELL DISTRIBUTION WIDTH 19.7 % (11.5-14.5)
[2020-09-22 10:08] LABS: BAND NEUTROPHIL 11 % (0-10); METAMYELOCTE 2 % (0-2); MONOCYTE 2 % (0-7); MYELOCYTE 3 % (0-2); SEGMENTED NEUTROPHILS 78 % (37-75)
[2020-09-22 10:10] LABS: PLATELET MORPHOLOGY LARGE PLATELET SEEN; burr cell (echinocyte) 2+
[2020-09-22 11:28] LABS: rbc morphology (normal/abnorm) ABNORMAL (NORMAL)
[2020-09-22 12:00] VITALS: BP 99/39
[2020-09-22 16:00] VITALS: BP 105/36
[2020-09-23 01:49] VITALS: BP 121/51
[2020-09-23 05:03] VITALS: BP 134/49
[2020-09-23 06:04] LABS: PLATELET COUNT 211 x10^3mcL (179-408)
[2020-09-23 06:24] LABS: CALCIUM 7.5 mg/dL (8.5-10.1); CARBON DIOXIDE 22.4 mmol/L (21-32); CREATININE SERUM 3.8 mg/dL (0.6-1.0); MAGNESIUM 2.1 mg/dL (1.8-2.4); POTASSIUM SERUM 4.3 mmol/L (3.5-5.1)
[2020-09-23 06:31] LABS: RED CELL DISTRIBUTION WIDTH 19.3 % (12.3-17.7)
[2020-09-23 08:00] VITALS: BP 122/32
[2020-09-23 08:48] LABS: BAND NEUTROPHIL 6 % (0-10); MONOCYTE 2 % (0-7); PLATELET MORPHOLOGY LARGE PLATELET SEEN; SEGMENTED NEUTROPHILS 90 % (37-75); rbc morphology (normal/abnorm) ABNORMAL (NORMAL)
[2020-09-23 12:00] VITALS: BP 112/32
[2020-09-23 16:00] VITALS: BP 93/60
[2020-09-23 20:43] VITALS: BP 124/45
[2020-09-24] VITALS (9 sets, daily range): BP systolic 101–144; BP diastolic 35–61
[2020-09-24 08:51] LABS: PLATELET COUNT 198 x10^3mcL (179-408)
[2020-09-24 09:51] LABS: CALCIUM 7.8 mg/dL (8.5-10.1); CARBON DIOXIDE 22.1 mmol/L (21-32); MAGNESIUM 1.9 mg/dL (1.8-2.4); PHOSPHOROUS 5.6 mg/dL (2.5-4.9); POTASSIUM SERUM 4.1 mmol/L (3.5-5.1)
[2020-09-24 09:52] LABS: CREATININE SERUM 4.6 mg/dL (0.6-1.0)
[2020-09-24 10:25] LABS: BAND NEUTROPHIL 8 % (0-10); MONOCYTE 2 % (0-7); SEGMENTED NEUTROPHILS 82 % (37-75)
[2020-09-24 10:26] LABS: METAMYELOCTE 2 % (0-2); MYELOCYTE 1 % (0-2); rbc morphology (normal/abnorm) ABNORMAL (NORMAL)
[2020-09-24 10:27] LABS: PLATELET MORPHOLOGY LARGE PLATELET SEEN
== END 2020-09-24 22:48 | disposition short-term general hospital (02) | DRG 720 ==
LOC: ED 10:53 → IW 15:35 → IC 15:35 → IW 08-27 08:07 → IC 09-17 01:28 → DU 09-20 20:43 → IC 09-22 01:22
PROVIDERS: Internal Medicine; Internal Medicine Critical Care Medicine; Internal Medicine Gastroenterology; Internal Medicine Nephrology; Specialist; ADMIT Family Medicine; ATTEND Family Medicine
PROC: XW13325 Transfusion of Convalescent Plasma (Nonautologous) into Peripheral Vein, Percutaneous Approach, New Technology Group 5 (ICD-10-PCS; principal; 2020-08-21)
PROC: 5A1955Z Respiratory Ventilation, Greater than 96 Consecutive Hours (ICD-10-PCS; 2020-08-22)
PROC: 02HV33Z Insertion of Infusion Device into Superior Vena Cava, Percutaneous Approach (ICD-10-PCS; 2020-08-22)
PROC: B548ZZA Ultrasonography of Superior Vena Cava, Guidance (ICD-10-PCS; 2020-08-22)
PROC: 0BH18EZ Insertion of Endotracheal Airway into Trachea, Via Natural or Artificial Opening Endoscopic (ICD-10-PCS; 2020-08-22)
PROC: 30233N1 Transfusion of Nonautologous Red Blood Cells into Peripheral Vein, Percutaneous Approach (ICD-10-PCS; 2020-08-28)
PROC: XW033E5 Introduction of Remdesivir Anti-infective into Peripheral Vein, Percutaneous Approach, New Technology Group 5 (ICD-10-PCS; 2020-09-07)
PROC: 5A09357 Assistance with Respiratory Ventilation, Less than 24 Consecutive Hours, Continuous Positive Airway Pressure (ICD-10-PCS; 2020-09-10)
PROC: 5A09357 Assistance with Respiratory Ventilation, Less than 24 Consecutive Hours, Continuous Positive Airway Pressure (ICD-10-PCS; 2020-09-17)
PROC: 5A09357 Assistance with Respiratory Ventilation, Less than 24 Consecutive Hours, Continuous Positive Airway Pressure (ICD-10-PCS; 2020-09-19)
PROC: 5A09357 Assistance with Respiratory Ventilation, Less than 24 Consecutive Hours, Continuous Positive Airway Pressure (ICD-10-PCS; 2020-09-21)
PROC: 5A09457 Assistance with Respiratory Ventilation, 24-96 Consecutive Hours, Continuous Positive Airway Pressure (ICD-10-PCS; 2020-09-22)
DX: A41.9 Sepsis, unspecified organism (principal); U07.1 COVID-19; N17.0 Acute kidney failure with tubular necrosis; R65.21 Severe sepsis with septic shock; E43 Unspecified severe protein-calorie malnutrition; D68.69 Other thrombophilia; I50.33 Acute on chronic diastolic (congestive) heart failure; E83.39 Other disorders of phosphorus metabolism; E87.1 Hypo-osmolality and hyponatremia; J80 Acute respiratory distress syndrome; J45.909 Unspecified asthma, uncomplicated; W18.39XA Other fall on same level, initial encounter; E66.9 Obesity, unspecified; N17.9 Acute kidney failure, unspecified; M62.82 Rhabdomyolysis; E11.9 Type 2 diabetes mellitus without complications; E87.6 Hypokalemia; J12.82 Pneumonia due to coronavirus disease 2019; I11.0 Hypertensive heart disease with heart failure; R74.01 Elevation of levels of liver transaminase levels; I48.0 Paroxysmal atrial fibrillation; E87.0 Hyperosmolality and hypernatremia; Y93.89 Activity, other specified; Y92.89 Other specified places as the place of occurrence of the external cause; Y99.8 Other external cause status; Z68.26 Body mass index [BMI] 26.0-26.9, adult; Z85.3 Personal history of malignant neoplasm of breast
CPT/HCPCS: 31500; 36600; 43235; 82962; 83880; 84439; 85060; 85378; 87046; 87046-59; 92526-GN; 92610-GN; 97110-GP; 97112-GP; 97164; 97530-GP; A4628; C9113; G0378; J0171; J0282; J0360; J0456; J0610; J0696; J1100; J1160; J1200; J1364; J1610; J1630; J1644; J1650; J1815; J1940; J2250; J2310; J2370; J2405; J2543; J2704; J2765; J2916; J2920; J3010; J3370; J3475; J3480; J3490; J3535; J7030; J7040; J7050; J7060; J7070; J7131; J7613; P9016; P9047; P9059; Q0163; Q9967; U0003